=== PATIENT | female | born 1995 | race Caucasian/White ===

== ENCOUNTER 2017-08-08 22:38 | Observation (INO) | payer OTHER | END 2017-08-08 23:25 | disposition home or self-care (01) | LOC: FLD 22:38 | PROVIDERS: ADMIT Obstetrics & Gynecology; ATTEND Obstetrics & Gynecology | DX: Z34.03 Encounter for supervision of normal first pregnancy, third trimester (principal); Z3A.39 39 weeks gestation of pregnancy ==

== ENCOUNTER 2017-08-12 21:16 | Inpatient (IN) | payer BC, OTHER ==
[2017-08-13] MEDS ORDERED: OXYTOCIN 20 UNIT in LR 1,000 ML IV PRN (01:20)
[2017-08-13] MEDS ORDERED: OLIVE OIL 118 ML BTL MISC PRN (01:20)
[2017-08-13] MEDS ORDERED: TERBUTALINE SULFATE 1 MG/ML VIAL IV PRN (01:20)
[2017-08-13] MEDS ORDERED: LR 1,000 ML IV PRN (01:20)
[2017-08-13] MEDS ORDERED: IBUPROFEN 600 MG TAB PO PRN (01:20)
[2017-08-13] MEDS ORDERED: EPSOM SALT 454 GM TP PRN ×2 (01:20→17:02)
[2017-08-13] MEDS ORDERED: MISOPROSTOL 200 MCG TAB PO PRN (01:20)
[2017-08-13] MEDS ORDERED: AMMONIA AROMATIC 1 EACH AMP IH PRN (01:20)
[2017-08-13] MEDS ORDERED: ONDANSETRON 4 MG/2 ML VIAL IVP PRN (01:32)
[2017-08-13 01:44] LABS: PLATELET COUNT 267 10^3/uL (150-400)
[2017-08-13] MEDS ORDERED: PHENYLEPHRINE HCL 100 MCG/ML SYR ONE (01:47)
[2017-08-13] MEDS ORDERED: BUPIVACAINE 0.25% 30 ML SDV ONE (01:47)
[2017-08-13] MEDS ORDERED: fentaNYL 2MCG/ML/BUP 0.1% RTU 100 ML BAG EP ONE (01:47)
--- NOTE | 2017-08-13 01:54 | PREANESOB ---
Obstetric Pre-Anesthesia Info - General Info : 1 Para: 0 WILI: 08/23/17 Gestational Age: 38 week(s) and 3 day(s) - Info Status: Full Term - Labor Status Cervical Dilation per last OB SVE: 4 Magnesium Sulfate in Use: No Indications for Labor Analgesia: Pain Control Labor Epidural: Proposed Anesthesia Allergies/Adverse Reactions: Allergy/AdvReac Type Severity Reaction Status Date / Time No Known Allergies Allergy Unverified 07/29/15 18:24 Home Medications: Medication Instructions Recorded Complete Caplet 08/12/17 Visit Medications: Generic Name Dose Route Start Last Admin Trade Name Freq PRN Reason Stop Dose Admin Ammonia (Aromatic Spirit) 1 each 08/13/17 01:20 Ammonia Aromatic IH 08/23/17 01:19 ONCE PRN Fainting Ampicillin Sodium 1 gm/ Sodium 50 mls @ 100 mls/hr 08/13/17 01:30 Chloride IV 08/13/17 02:29 Q30M LISSETT Protocol Ampicillin Sodium 1 gm/ Sodium 50 mls @ 100 mls/hr 08/13/17 05:21 Chloride IV 09/12/17 05:20 Q4H LISSETT Protocol Lactated Ringer's 1,000 mls @ 0 mls/hr 08/13/17 01:20 Lr IV 08/14/17 01:19 PRN PRN SEE PROTOCOL CONDITIONS Protocol Per Protocol Oxytocin 20 unit/ Lactated 1,002 mls @ 150 mls/hr 08/13/17 01:20 Ringer's IV PRN PRN Post- bleeding Ibuprofen 600 mg 08/13/17 01:20 Motrin PO 02/09/18 01:19 Q6HRS PRN post , inflammation Magnesium Sulfate 454 gm 08/13/17 01:20 Epsom Salt TP 02/09/18 01:19 Q1H PRN perineal discomfort Misoprostol 800 - 1,000 mcg 08/13/17 01:20 Cytotec PO ONCE PRN Vaginal Atony/Bleeding Worth Oil 118 ml 08/13/17 01:20 Sweet Oil MISC 02/09/18 01:19 ONCE PRN perineal massage Ondansetron HCl 4 mg 08/13/17 01:32 08/13/17 01:42 Zofran IVP 02/09/18 01:31 4 mg Q6HRS PRN Administration Nausea/Vomiting, Can't Take PO Terbutaline Sulfate 0.25 mg 08/13/17 01:20 Brethine IV 02/09/18 01:19 ONCE PRN Tachysystole Discontinued Medications Generic Name Dose Route Start Last Admin Trade Name Betty PRN Reason Stop Dose Admin Bupivacaine HCl Confirm 08/13/17 01:47 Sensorcaine 0.25% Sdv Administered 08/13/17 01:48 Dose 30 ml .ROUTE .STK-MED ONE Fentanyl/Bupivacaine HCl Confirm 08/13/17 01:47 Fentanyl/Bupivacaine/Ns 2 Mcg/Ml 0.1% (Premix Administered 08/13/17 01:48 Dose 100 ml EP .STK-MED ONE Phenylephrine HCl Confirm 08/13/17 01:47 Neosynephrine Administered 08/13/17 01:48 Dose 1,000 mcg .ROUTE .STK-MED ONE - Anesthesia History Response to Local Anesthetics: Normal Anesthesia & Operative History: No Prior Problems Family Anesthesia History: Not Applicable - Social History Substance Use/Abuse: Denies - Vital Signs Latest Vital Signs (Nursing): see nursing Height/Weight (Nursing): Height 162.56 cm Weight 63.957 kg - Focused Exam Neck exam: FROM Mallampati Score: Class 2 Mouth exam: normal dental/mouth exam Pulmonary: no respiratory distress Labs: 08/13/17 01:23 - Plan Anesthetic Plan: AROLDO Consent Signed and on Chart: Yes Patient/Guardian Understands and Agrees to Plan: No
[2017-08-13] MEDS: AMPICILLIN SODIUM 1 GM in NS 50 ML IV SCH ×3 (02:14→09:54)
[2017-08-13] MEDS ORDERED: NALOXONE HCL 0.4 MG/ML INJ IVP PRN (02:24)
[2017-08-13] MEDS ORDERED: PHENYLEPHRINE HCL 100 MCG/ML SYR IVP PRN (02:24)
--- NOTE | 2017-08-13 02:27 | POSTANESTH ---
Post Anesthetic Evaluation Cardiovascular Status: Normal, Stable, Similar to Pre-Op Cond Respiratory Status: Normal, Stable, Similar to Pre-op Cond. Level of Consciousness/Mental Status: Can Participate in Eval, Alert and Oriented Pain Control: Adequate, Prn Tx Ordered (pt comfortable, B level) Nausea/Vomiting Control: Adequate, Prn Tx Ordered Complications Possibly Related to Anesthesia: None Noted
[2017-08-13] MEDS ORDERED: fentaNYL 2MCG/ML/BUP 0.1% RTU 100 ML EP SCH (02:30)
[2017-08-13] MEDS ORDERED: LR 500 ML IV SCH (02:30)
[2017-08-13] MEDS ORDERED: LIDOCAINE 1% 300 MG/30 ML SDV ONE (03:38)
[2017-08-13] MEDS ORDERED: TERBUTALINE SULFATE 1 MG/ML VIAL ONE (03:39)
[2017-08-13] MEDS ORDERED: OLIVE OIL 118 ML BTL ONE (03:39)
[2017-08-13] MEDS ORDERED: MISOPROSTOL 200 MCG TAB ONE (03:39)
[2017-08-13] MEDS ORDERED: OXYTOCIN 10 UNIT/ML VIAL ONE (03:39)
--- NOTE | 2017-08-13 06:54 | OBPROG ---
Labor Progress Note Assessment/Plan: Assessment: 22 y/o at 38 3/7 wks in active labor Plan: Pt is s/p epidural and comfortable On exam, pt is complete/+1; intact s/p Amp x 2 for GBS prophylaxis Will have pt labor down Signed out to Dr. Cade who is blown film extrusion operator today 08/13/17 06:50 Subjective/Intrapartum Course: 08/13/17 06:54 Pt is comfortable, s/p epidural. She is not feeling any pressure and legs are pretty numb. Objective: 08/13/17 01:23 Patient ABO/Rh A POSITIVE 08/13/17 01:23 - SVE Dilation (cm): 10 Effacement (%): 100 Station: +1 Membranes: Intact - Contraction Pattern Assessment Current Contraction Pattern: Regular - FHR Assessment Murray FHR (bpm): 130 FHR Pattern Variability: Moderate FHR Category: 1 Oxytocin Orders Assessment - Pre-Induction/Augmentation Assessment Gestational Age: 38 week(s) and 3 day(s) ICD10 Worksheet Patient Problems: Problems Problem Status Onset Group beta Strep positive Acute - ICD10 Problem Qualifiers (1) Group beta Strep positive
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
--- NOTE | 2017-08-13 08:10 | OBDEL ---
Info Type: Vaginal Presentation at Delivery: Vertex L&D Analgesia/Anesthesia Type: Epidural GBS+: Yes Antibiotic Used for + GBS: Ampicillin Intrapartum Medications: Generic Name Dose Route Start Last Admin Trade Name Freq PRN Reason Stop Dose Admin Ampicillin Sodium 1 gm/ Sodium 50 mls @ 100 mls/hr 08/13/17 05:21 08/13/17 05 :17 Chloride IV 09/12/17 05:20 50 mls Q4H LISSETT Administration Protocol Ondansetron HCl 4 mg 08/13/17 01:32 08/13/17 01:42 Zofran IVP 02/09/18 01:31 4 mg Q6HRS PRN Administration Nausea/Vomiting, Can't Take PO Discontinued Medications Generic Name Dose Route Start Last Admin Trade Name Freq PRN Reason Stop Dose Admin Ampicillin Sodium 1 gm/ Sodium 50 mls @ 100 mls/hr 08/13/17 01:30 08/13/17 02 :14 Chloride IV 08/13/17 02:29 50 mls Q30M LISSETT Administration Protocol - Hospital Course Intrapartum: 08/13/17 06:54 Pt is comfortable, s/p epidural. She is not feeling any pressure and legs are pretty numb. Indications for Delivery: Spontaneous Labor, SROM Vaginal Delivery - Delivery Provider Delivery Physician/CNM: Lu Cade - Labor and Delivery Onset of Contractions Date: 08/12/17 Onset of Contractions Time: 10:00 Onset of Contractions Type: Spontaneous Rupture of Membranes Date: 08/13/17 Rupture of Membranes Time: 07:23 Rupture of Membranes Type: Artificial Amniotic Fluid Color: Clear Dilation Complete Date: 08/13/17 Dilation Complete Time: 06:01 Placenta Delivery Date: 08/13/17 Placenta Delivery Time: 07:41 Total Hours of Labor: 21 Non-surgical Procedures: Amniotomy Laceration: Other (Specify) (Right vaginal and small right sulcus tear) Repair: 2-0 Vaginal Sponge Count Correct: Yes Vaginal Needle Count Correct: Yes Vaginal Sweep Performed: Yes Delivery Events: Nuchal Cord Delivery Comment: patient labored down for one hour. Pushed for 11 minutes. with right vaginal and small right sulcus tear. Baby delivered with nuchal and body cord. PLacenta spontaneously delivered intact. EBL 250 mL Lacerations were repaired with 2-0 vicryl under local. patient tolerated procedure well. - Medications Labor Augmentation/Induction Methods Used: None Data WILI: 08/23/17 Gestational Age: 38 week(s) and 4 day(s) Murray Delivery Date: 08/13/17 Delivery Time: 07:35 Sex of Infant: Male Score (1 Min): 8 Score (5 Min): 9 ICD10 Worksheet Patient Problems: Problems Problem Status Onset Group beta Strep positive Acute
[2017-08-13] MEDS: IBUPROFEN 600 MG TAB PO PRN (18:40)
[2017-08-14] MEDS: IBUPROFEN 600 MG TAB PO PRN ×4 (00:29→19:22)
[2017-08-14 09:02] VITALS: RESP 16
[2017-08-14] MEDS ORDERED: HYDROCORTISONE 0.5% CREAM TP PRN (10:12)
[2017-08-14] MEDS ORDERED: ACETAMINOPHEN 325 MG TAB PO PRN (10:12)
--- NOTE | 2017-08-14 11:32 | OBPP ---
Progress Note Assessment/Plan: Assessment: 22 y/o PPD #1 s/p doing well. Plan: support today. Will give Rx Apno cream. Ibuprofen prn and Colace for bowel protocol. Routine PPC. 08/14/17 11:31 Subjective/ Course: 08/14/17 11:29 Pt is doing well this am. She has some pain with hemorrhoids and perineal repair, controlled with Ibuprofen. She is ambulating, voiding without difficulty and baby is doing well. They are working on breast feeding and baby needs help with latch. She has sore nipples and would like APNO cream. Objective: 08/13/17 01:23 Patient ABO/Rh A POSITIVE 08/13/17 01:23 Temp Pulse Resp BP Pulse Ox 36.6 C 78 16 97/67 L 94 08/14/17 08:00 08/14/17 08:00 08/14/17 08:00 08/14/17 08:00 08/14/17 08:00 Uterine Position/Fundal Height: Umbilicus -2 Uterine Tone: Firm Physical Exam - Physical Exam Neck: non-tender, full range of motion, supple Respiratory: chest non-tender, lungs clear, normal breath sounds Cardiac/Chest: regular rate, rhythm Abdomen: normal bowel sounds Extremities: swelling (no), Deisy's sign (neg)
[2017-08-14] MEDS: DOCUSATE SODIUM 100 MG CAP PO SCH ×2 (11:56→20:14)
[2017-08-14 19:56] VITALS: BP 99/61; PULSE 82; TEMP 97.8; O2SAT 95
[2017-08-15] MEDS: IBUPROFEN 600 MG TAB PO PRN ×2 (01:06→07:57)
[2017-08-15] MEDS: DOCUSATE SODIUM 100 MG CAP PO SCH (08:02)
--- NOTE | 2017-08-15 08:12 | OBPP ---
Progress Note Assessment/Plan: Assessment:nipples intact denies pain with sleep deprived pain well managed voiding without difficulty pericare with each void ff@u scant rubra lochia perineum approximated Plan:discharge to home with instructions discussed contraception, pelvic rest, rest, infection, bleeding pattern, exercise, pain management, , depression, fu 4 weeks and 6 weeks 08/15/17 08:10 Subjective/ Course: Doing well denies difficulties, well. perineum approximated. ready to go home 08/14/17 11:29 Pt is doing well this am. She has some pain with hemorrhoids and perineal repair, controlled with Ibuprofen. She is ambulating, voiding without difficulty and baby is doing well. They are working on breast feeding and baby needs help with latch. She has sore nipples and would like APNO cream. 08/15/17 08:09 Doing well denies difficulties. well. PAin well managed. 08/15/17 08:12 Objective: 08/13/17 01:23 Patient ABO/Rh A POSITIVE 08/13/17 01:23 Temp Pulse Resp BP Pulse Ox 36.6 C 82 16 99/61 L 95 08/14/17 19:55 08/14/17 19:55 08/14/17 19:55 08/14/17 19:55 08/14/17 19:55 Uterine Position/Fundal Height: At Umbilicus Uterine Tone: Firm Physical Exam - Physical Exam General Appearance: WD/WN, alert, no apparent distress Respiratory: chest non-tender, lungs clear, normal breath sounds Cardiac/Chest: regular rate, rhythm Abdomen: normal bowel sounds Extremities: normal range of motion, Deisy's sign (negative bilaterally) DTR- Lower Extremities: Knee (R): 1+, Knee (L): 1+ (no clonus) Skin: normal color, warm/dry Neuro/Psych: no motor/sensory deficits, alert, normal mood/affect, oriented x 3
--- NOTE | 2017-08-15 08:21 | OBGCSDC ---
General Delivery Information - General Info : 1 Para: 1 Abortions: 0 Type: Vaginal L&D Analgesia/Anesthesia Type: Epidural, Local Admission Date: 08/13/17 Labs: Patient ABO/Rh A POSITIVE 08/13/17 01:23 Hct 40.2 % (38.0-47.0) 08/13/17 01:23 - Hospital Course Intrapartum: 08/13/17 06:54 Pt is comfortable, s/p epidural. She is not feeling any pressure and legs are pretty numb. : Doing well denies difficulties, well. perineum approximated. ready to go home 08/14/17 11:29 Pt is doing well this am. She has some pain with hemorrhoids and perineal repair, controlled with Ibuprofen. She is ambulating, voiding without difficulty and baby is doing well. They are working on breast feeding and baby needs help with latch. She has sore nipples and would like APNO cream. 08/15/17 08:09 Doing well denies difficulties. well. PAin well managed. 08/15/17 08:12 Vaginal - Delivery Provider Delivery Physician/CNM: Lu Cade - Diagnosis Labor: Spontaneous Rupture of Membranes Type: Artificial Amniotic Fluid Color: Clear Laceration: Other (Specify) (Right vaginal and small right sulcus tear) Repair: 2-0 Delivery Events: Nuchal Cord - Procedures Non-surgical Procedures: Amniotomy - Delivery Non-surgical Procedures: Amniotomy Data WILI: 08/23/17 Gestational Age: 38 week(s) and 6 day(s) Murray Delivery Date: 08/13/17 Delivery Time: 07:35 Sex of : Male Score (1 Min): 8 Score (5 Min): 9 Discharge Information - Discharge Information Prescriptions: Ibuprofen [Motrin (*)] 600 mg PO Q6HRS PRN #30 tab PRN Reason: post , inflammation Condition: Good
== END 2017-08-15 11:30 | disposition home or self-care (01) | DRG 775 ==
LOC: FLD 21:16 → OBSVTOIN 08-13 01:22 → FOB 08-13 11:41
PROVIDERS: ADMIT Obstetrics & Gynecology; ATTEND Obstetrics & Gynecology
PROC: 10907ZC Drainage of Amniotic Fluid, Therapeutic from Products of Conception, Via Natural or Artificial Opening (ICD-10-PCS; principal; 2017-08-14)
PROC: 10E0XZZ Delivery of Products of Conception, External Approach (ICD-10-PCS; principal; 2017-08-14)
PROC: 0HQ9XZZ Repair Perineum Skin, External Approach (ICD-10-PCS; principal; 2017-08-14)
DX: O71.4 Obstetric high vaginal laceration alone (principal); O99.820 Streptococcus B carrier state complicating pregnancy; O22.43 Hemorrhoids in pregnancy, third trimester; O69.89X0 Labor and delivery complicated by other cord complications, not applicable or unspecified; Z3A.38 38 weeks gestation of pregnancy; Z37.0 Single live birth
CPT/HCPCS: J0290; J2370; J2405; J3105